=== PATIENT | female | born 1970 | race Caucasian/White ===

== ENCOUNTER 2025-06-02 05:53 | Inpatient (IN) | payer OTHER ==
[~2025-06-02] VITALS: Ht 160 cm; Wt 52.0 kg
[2025-06-02 07:09] LABS: BASOPHILS ABSOLUTE AUTO 0.03 K/mm3 (0.00-0.23); BASOPHILS PERCENT AUTO 1 % (0-2); EOSINOPHILS ABSOLUTE AUTO 0.11 K/mm3 (0.00-0.68); EOSINOPHILS PERCENT AUTO 2 % (0-6); Hematocrit 29.6 % (33.0-51.0); Hemoglobin 10.7 g/dL (11.5-16.0); IMMATURE GRAN ABSOLUTE AUTO 0.13 K/mm3 (0.00-0.10); IMMATURE GRAN PERCENT AUTO 2 % (0-1); LYMPHOCYTES ABSOLUTE AUTO 0.88 K/mm3 (0.84-5.20); LYMPHOCYTES PERCENT AUTO 13 % (21-46); MONOCYTES ABSOLUTE AUTO 0.77 K/mm3 (0.16-1.47); MONOCYTES PERCENT AUTO 12 % (4-13); Mean Corpuscular HGB Conc 36.1 g/dL (31.5-36.5); Mean Corpuscular Volume 96 fL (80-100); NEUTROPHILS ABSOLUTE AUTO 4.70 K/mm3 (1.96-9.15); NEUTROPHILS PERCENT AUTO 71 % (41-73); NRBC ABSOLUTE 0.00 K/mm3 (0.00-0.02); NRBC Auto 0.0 /100 WBC (0.0-0.2); Platelet Count 194 K/mm3 (150-400); RDW Coefficient Variation 13.0 % (11.7-14.2); RDW Standard Deviation 45.1 fL (35.1-46.3)
[2025-06-02] MEDS ORDERED: CefTRIAXone Sodium 2,000 MG in NS 100 ML IV ONE (07:25)
[2025-06-02 07:28] LABS: Alanine Aminotransfer (ALT/SGP 17.0 U/L (12-78); Albumin, Blood 2.3 g/dL (3.4-5.0); Albumin/Globulin Ratio 0.7 (0.8-1.8); Anion Gap 9.0 mmol/L (3-11); Aspartate Aminotrans (AST/SGOT 9.0 U/L (12-37); Bilirubin, Total 0.3 mg/dL (0.1-1.0); Blood Urea Nitrogen 12.0 mg/dL (8-24); CO2, Blood 25.0 mmol/L (21-32); Calcium, Blood 8.8 mg/dL (8.5-10.1); Chloride, Blood 102.0 mmol/L (98-108); Creatinine, Blood 0.61 mg/dL (0.40-1.00); Globulin, Blood 3.5 g/dL (2.2-4.0); Glucose, Blood 127.0 mg/dL (70-99); Potassium, Blood 2.7 mmol/L (3.5-5.5); Sodium, Blood 133.0 mmol/L (136-145); Total Protein, Blood 5.8 g/dL (6.4-8.2)
[2025-06-02] MEDS ORDERED: Potassium Chl 10MEQ/Water100ML 100 ML IV ONE (07:45)
[2025-06-02] MEDS ORDERED: NS 1,000 ML IV SCH ×2 (09:20→15:00)
[2025-06-02] MEDS ORDERED: Ondansetron HCl 2 MG / ML 2ML Vial IV ONE (09:20)
[2025-06-02] MEDS ORDERED: FLU VACC TS2025-26(6MOS UP)/PF 45 MCG/0.5 ML SYRINGE IM ONE (11:55)
[2025-06-02] MEDS ORDERED: Polyethylene Glycol 3350 17 gm PO ONE (15:00)
[2025-06-02] MEDS ORDERED: Polyethylene Glycol 3350 17 gm PO PRN (15:00)
[2025-06-02] MEDS ORDERED: Albuterol HFA200 ACT/6.7 GM INH INH PRN (15:00)
[2025-06-02 15:09] VITALS: BP 127/80
--- NOTE | 2025-06-02 15:21 | NUR ---
ADMISSION NOTE: PT ARRIVED TO ROOM 342 VIA W/C AT 1505. A&OX4 ON ARRIVAL. SELF TRANSFERED TO BED. IVs FLUSHED, PATENT. VSS. LYING IN BED WITH HOB SLIGHTLY ELEVATED. REPORT GIVEN TO PRIMARY RN. CALL LT WITHIN REACH. BED LOCKED AND PLACED INTO ITS LOWEST POSITION.
[2025-06-02] MEDS ORDERED: FLU VACC TS2025-26(6MOS UP)/PF 45 MCG/0.5 ML SYRINGE IM SCH (16:50)
--- NOTE | 2025-06-02 19:39 | NUR ---
SHIFT SUMMARY- PT ALERT AND ORIENTED. SHE WAS ADMITTED THROUGH THE ED FOR PNEUMONIA. ADMISSION COMPLETED. CALLED DR JOHNSON AFTER ADMIT ASSESSMENT. PT STATED SHE HAS OFF AND ON NUMBNESS IN THE TWO OUTER FINGERS OF HER RIGHT HAND; HOWEVER SHE STATES THEY HAVE BEEN NUMB FOR THE PAST WEEK OR TWO AND NOW HER HAND IS STARTING TO BURN. IS AWARE AND WILL SEE THE PT TOMORROW. BEDSIDE REPORT COMPLETED WITH NIGHT DUSTIN WATT. PT UNABLE TO PRODUCE ADEQUATE SPUTUM SAMPLE, NIGHT RN AWARE AND WILL TRY TO GET A SAMPLE. PT RESTING AT THE TIME OF REPORT. NO S&S OF DISTRESS NOTED.
[2025-06-02 19:41] VITALS: BP 145/86
[2025-06-02 22:17] VITALS: BP 131/86
--- NOTE | 2025-06-02 23:22 | NUR ---
Severe abd pain At 1999 pt c/o severe sharp abdominal pain where she could feel her pulse in her abdomen. Rechecked VS, no change. No dizzyness, nausea or clammy skin. I called the resident who came and assessed her. He ordered 500 mg Tums PRN and said to call back in 2 hours if symptoms do not improve.
[2025-06-03 04:23] VITALS: BP 123/79
[2025-06-03 05:03] LABS: BASOPHILS ABSOLUTE AUTO 0.04 K/mm3 (0.00-0.23); BASOPHILS PERCENT AUTO 1 % (0-2); EOSINOPHILS ABSOLUTE AUTO 0.12 K/mm3 (0.00-0.68); EOSINOPHILS PERCENT AUTO 2 % (0-6); Hematocrit 30.6 % (33.0-51.0); Hemoglobin 10.7 g/dL (11.5-16.0); IMMATURE GRAN ABSOLUTE AUTO 0.22 K/mm3 (0.00-0.10); IMMATURE GRAN PERCENT AUTO 5 % (0-1); LYMPHOCYTES ABSOLUTE AUTO 1.42 K/mm3 (0.84-5.20); LYMPHOCYTES PERCENT AUTO 29 % (21-46); MONOCYTES ABSOLUTE AUTO 0.72 K/mm3 (0.16-1.47); MONOCYTES PERCENT AUTO 15 % (4-13); Mean Corpuscular HGB Conc 35.0 g/dL (31.5-36.5); Mean Corpuscular Volume 95 fL (80-100); NEUTROPHILS ABSOLUTE AUTO 2.41 K/mm3 (1.96-9.15); NEUTROPHILS PERCENT AUTO 49 % (41-73); NRBC ABSOLUTE 0.00 K/mm3 (0.00-0.02); NRBC Auto 0.0 /100 WBC (0.0-0.2); Platelet Count 214 K/mm3 (150-400); RDW Coefficient Variation 13.2 % (11.7-14.2); RDW Standard Deviation 46.7 fL (35.1-46.3)
[2025-06-03 05:49] LABS: Alanine Aminotransfer (ALT/SGP 15.0 U/L (12-78); Albumin, Blood 2.1 g/dL (3.4-5.0); Albumin/Globulin Ratio 0.6 (0.8-1.8); Anion Gap 8.0 mmol/L (3-11); Aspartate Aminotrans (AST/SGOT 11.0 U/L (12-37); Bilirubin, Total 0.3 mg/dL (0.1-1.0); Blood Urea Nitrogen 6.0 mg/dL (8-24); CO2, Blood 24.0 mmol/L (21-32); Calcium, Blood 8.4 mg/dL (8.5-10.1); Chloride, Blood 107.0 mmol/L (98-108); Creatinine, Blood 0.51 mg/dL (0.40-1.00); Globulin, Blood 3.5 g/dL (2.2-4.0); Glucose, Blood 103.0 mg/dL (70-99); Potassium, Blood 2.9 mmol/L (3.5-5.5); Sodium, Blood 136.0 mmol/L (136-145); Total Protein, Blood 5.6 g/dL (6.4-8.2)
--- NOTE | 2025-06-03 06:29 | NUR ---
Shift Summary Pt had severe abd pain at one point in the night, see previous nursing note. Abd pain is now resolved, pt states she feels much better after having a BM this AM. Pt is AOx4, independent in the room. Lung sounds are a bit coarse and wheezy. SPO2>92% on RA, no difficult or labored breathing.
[2025-06-03 07:40] VITALS: BP 134/85
[2025-06-03 07:50] LABS: Acinetobacter baumannii DNA Not Detected copy/mL (NOT DETECT); Chlamydia pneumonia Not Detected (NOT DETECT); Enterobacter cloacae DNA Not Detected copy/mL (NOT DETECT); Escherichia coli DNA Not Detected copy/mL (NOT DETECT); Haemophilus influenzae DNA Not Detected copy/mL (NOT DETECT); Human Coronavirus RNA Not Detected (NOT DETECT); Human Metapneumovirus RNA Not Detected (NOT DETECT); Influenza virus A RNA Not Detected (NOT DETECT); Influenza virus B RNA Not Detected (NOT DETECT); Klebsiella aerogenes DNA Not Detected copy/mL (NOT DETECT); Klebsiella oxytoca DNA Not Detected copy/mL (NOT DETECT); Klebsiella pneumoniae DNA Not Detected copy/mL (NOT DETECT); Moraxella catarrhalis DNA Not Detected copy/mL (NOT DETECT); Proteus sp DNA Not Detected copy/mL (NOT DETECT); Pseudomonas aeruginosa DNA Not Detected copy/mL (NOT DETECT); Respiratory syncytial Vir RNA Not Detected (NOT DETECT); Rhinovirus+Enterovirus RNA Not Detected (NOT DETECT); Serratia marcescens DNA Not Detected copy/mL (NOT DETECT); Staphylococcus aureus DNA Not Detected copy/mL (NOT DETECT); Streptococcus agalactiae DNA Not Detected copy/mL (NOT DETECT); Streptococcus pneumoniae DNA Not Detected copy/mL (NOT DETECT); Streptococcus pyogenes DNA Not Detected copy/mL (NOT DETECT)
[2025-06-03] MEDS ORDERED: CefTRIAXone Sodium 1,000 MG in NS 100 ML IV SCH (08:00)
[2025-06-03] MEDS ORDERED: Enoxaparin 40 MG/0.4 ML SYR SC SCH (09:00)
--- NOTE | 2025-06-03 09:00 | NUR ---
pt laying in bed, but up ad aleyda in room frequently gate noted to be steady, a/ox4, pleasant and cooperative with care, follows commands well, denies pain except with swollow, sore throat, lungs are course, crackles in left base, with occ exp wheeze, on r/a, has a productive cough of green sputum, hrr, no edema noted, ppp+2, cap refill<3 sec, vs stable, afebrile, pivx2 to right hand and left ac, sites are clear and patent, btx4, abd flat soft nontneder, voids without diff, skin c/w/d, maew, vonnie, call light in reach.
[2025-06-03] MEDS ORDERED: CefTRIAXone Sodium 1,000 MG in NS 100 ML IV ONE (12:10)
--- NOTE | 2025-06-03 14:21 | NUR ---
PT REPORTS SHARP PAIN UNDER LEFT SHOULDERBLADE AND LOWER LEFT LUNG. PAIN DOES NOT CHANGE WITH DEEP INSPIRATION. PATIENT GIVEN FLUTTER VALVE AND INSTRUCTED ON ITS USE. AUTOMATIC MACHINES SUPERVISOR WILL OBTAIN KPAD. CONTACTED VIA PHONE DR BERRY AND MED ORDERS RECEIVED,PT GIVEN UPDATE OF PLAN FOR CARE
--- NOTE | 2025-06-03 14:35 | NUR ---
Pt complaining about bad back pain just under shoulder blade, rates 02/02, was called and recieved order for tramadol, this was given, will also set up a heating pad for her, sitting up on the side of the bed at this time, call light in reach.
[2025-06-03] MEDS ORDERED: Lactobacil 2-S.Thermo-Bifido 1 1 Cap PO SCH (14:55)
[2025-06-03 19:20] VITALS: BP 138/91
[2025-06-04 03:10] VITALS: BP 134/83
[2025-06-04 04:19] LABS: Hematocrit 30.3 % (33.0-51.0); Hemoglobin 10.7 g/dL (11.5-16.0); Mean Corpuscular HGB Conc 35.3 g/dL (31.5-36.5); Mean Corpuscular Volume 95 fL (80-100); NRBC ABSOLUTE 0.00 K/mm3 (0.00-0.02); NRBC Auto 0.0 /100 WBC (0.0-0.2); Platelet Count 201 K/mm3 (150-400); RDW Coefficient Variation 13.2 % (11.7-14.2); RDW Standard Deviation 46.7 fL (35.1-46.3)
[2025-06-04 04:49] LABS: Alanine Aminotransfer (ALT/SGP 13.0 U/L (12-78); Albumin, Blood 2.3 g/dL (3.4-5.0); Albumin/Globulin Ratio 0.7 (0.8-1.8); Anion Gap 10.0 mmol/L (3-11); Aspartate Aminotrans (AST/SGOT 7.0 U/L (12-37); Bilirubin, Total 0.4 mg/dL (0.1-1.0); Blood Urea Nitrogen 4.0 mg/dL (8-24); CO2, Blood 24.0 mmol/L (21-32); Calcium, Blood 9.2 mg/dL (8.5-10.1); Chloride, Blood 104.0 mmol/L (98-108); Creatinine, Blood 0.44 mg/dL (0.40-1.00); Globulin, Blood 3.5 g/dL (2.2-4.0); Glucose, Blood 133.0 mg/dL (70-99); Potassium, Blood 3.5 mmol/L (3.5-5.5); Sodium, Blood 134.0 mmol/L (136-145); Total Protein, Blood 5.8 g/dL (6.4-8.2)
[2025-06-04 07:28] VITALS: BP 122/82
[2025-06-04] MEDS ORDERED: CefTRIAXone Sodium 2,000 MG in NS 100 ML IV SCH (08:00)
[2025-06-04] MEDS ORDERED: NS 250 ML IV PRN (08:15)
[2025-06-04 17:41] VITALS: BP 134/80
--- NOTE | 2025-06-04 17:51 | NUR ---
NO ACUTE CHANGES, CLEARLY MAKES NEEDS KNOWN, INCREASED COUGHING AND SPUTUMN, INCREASED AGGITATION AT TIMES, REFUSED NICOTINE PATCH TODAY
[2025-06-04 19:55] VITALS: BP 119/70
[2025-06-05 00:18] VITALS: BP 130/72
[2025-06-05 04:30] VITALS: BP 121/67
[2025-06-05 07:21] LABS: Alanine Aminotransfer (ALT/SGP 12.0 U/L (12-78); Albumin, Blood 2.3 g/dL (3.4-5.0); Albumin/Globulin Ratio 0.6 (0.8-1.8); Anion Gap 10.0 mmol/L (3-11); Aspartate Aminotrans (AST/SGOT 9.0 U/L (12-37); Bilirubin, Total 0.5 mg/dL (0.1-1.0); Blood Urea Nitrogen 5.0 mg/dL (8-24); CO2, Blood 25.0 mmol/L (21-32); Calcium, Blood 8.9 mg/dL (8.5-10.1); Chloride, Blood 101.0 mmol/L (98-108); Creatinine, Blood 0.47 mg/dL (0.40-1.00); Globulin, Blood 3.9 g/dL (2.2-4.0); Glucose, Blood 104.0 mg/dL (70-99); Magnesium, Blood 1.7 mg/dL (1.6-2.4); Potassium, Blood 3.5 mmol/L (3.5-5.5); Sodium, Blood 132.0 mmol/L (136-145); Total Protein, Blood 6.2 g/dL (6.4-8.2)
[2025-06-05 07:27] VITALS: BP 125/74
[2025-06-05] MEDS ORDERED: NICO21TP TOP (12:42)
[2025-06-05] MEDS ORDERED: ALBU90OI INH (12:42)
[2025-06-05] MEDS ORDERED: VISBIOME 112.51 EACH PO (12:43)
[2025-06-05] MEDS ORDERED: AZIT250 PO (12:44)
[2025-06-05] MEDS ORDERED: CEFDINIR300 M2 PO (12:44)
--- NOTE | 2025-06-05 14:38 | NUR ---
DISCHARGE NOTE PT A&OX4. PT ADMITTED DUE TO PNEUMONIA. PT REPORTS NO CHEST PAIN, PT REPORTS OWUSU, PAIN MANAGED PER EMAR. PT REPORTS NAUSEA BUT NO VOMITTING. PT REPORTS NO SOB. VSS. IV INFILTRATED THIS AM, NURSING RN PUT IN NEW IV WITH INSTRUCTOR. WANTED PT TO GET IV ANTIBIOTIC DOSE. PT RECEIVED ANTIBIOTIC X2. PT INDEPENDENT IN ROOM. PT REPORTS MUCUS PRODUCTION. FOOD DELIVERED TO PT TO TAKE HOME. CONTENT CURATOR ARRANGED TRANSPORT. PT REPORTED "WILL LET TAXI KNOW I NEED TO DATA [facility]IGRATION [facility] MEDS AT [facility]." IV D/C. SLURRY PLANT OPERATOR COMPLETED DISCHARGE AND FAXED MEDS TO PREFERRED PHARMACY. PT TOOK ALL BELONGINGS. THIS RN WENT OVER DISCHARGE INSTRUCTIONS AND MEDS. MANUAL MACHINIST ESCORTED PT TO PT ENTERANCE.
== END 2025-06-05 14:25 | disposition home or self-care (01) | DRG 871 ==
LOC: ER 05:53 → MEDS 05:54 → ENPENDDIS 06-05 11:53 → MEDS 06-05 14:25
PROVIDERS: Emergency Medicine; Registered Nurse; ADMIT Hospitalist
DX: A41.9 Sepsis, unspecified organism (principal); J18.9 Pneumonia, unspecified organism; J44.0 Chronic obstructive pulmonary disease with (acute) lower respiratory infection; E87.1 Hypo-osmolality and hyponatremia; E87.6 Hypokalemia; F17.210 Nicotine dependence, cigarettes, uncomplicated; M54.6 Pain in thoracic spine; F10.10 Alcohol abuse, uncomplicated; B96.89 Other specified bacterial agents as the cause of diseases classified elsewhere; Z23 Encounter for immunization
CPT/HCPCS: 0528U; 36415; 71046; 71260; 80053; 83605; 83735; 83880; 84484; 85025; 85027; 85379; 87040; 87070; 87205; 93005; 93010; 94640; 94664; 94760; 96361; 96365; 96366; 96367; 96368; 96372; 96375; 96376; 99285-25; A9270; G0378; J0456; J0696; J1650; J2405; J3480; J7030; J7050; Q9967

== ENCOUNTER 2025-07-05 14:17 | Emergency (ER) | payer OTHER ==
[~2025-07-05] VITALS: Ht 160 cm; Wt 49.9 kg
[~2025-07-05 14:17] MED LIST: ALBU90OI INH; AZIT250 PO; CEFDINIR300 M2 PO; NICO21TP TOP; VISBIOME 112.51 EACH PO
[2025-07-05 16:29] LABS: BASOPHILS ABSOLUTE AUTO 0.04 K/mm3 (0.00-0.23); BASOPHILS PERCENT AUTO 1 % (0-2); EOSINOPHILS ABSOLUTE AUTO 0.34 K/mm3 (0.00-0.68); EOSINOPHILS PERCENT AUTO 5 % (0-6); Hematocrit 39.6 % (33.0-51.0); Hemoglobin 13.4 g/dL (11.5-16.0); IMMATURE GRAN ABSOLUTE AUTO 0.02 K/mm3 (0.00-0.10); IMMATURE GRAN PERCENT AUTO 0 % (0-1); LYMPHOCYTES ABSOLUTE AUTO 1.78 K/mm3 (0.84-5.20); LYMPHOCYTES PERCENT AUTO 24 % (21-46); MONOCYTES ABSOLUTE AUTO 0.52 K/mm3 (0.16-1.47); MONOCYTES PERCENT AUTO 7 % (4-13); Mean Corpuscular HGB Conc 33.8 g/dL (31.5-36.5); Mean Corpuscular Volume 99 fL (80-100); NEUTROPHILS ABSOLUTE AUTO 4.77 K/mm3 (1.96-9.15); NEUTROPHILS PERCENT AUTO 64 % (41-73); NRBC ABSOLUTE 0.00 K/mm3 (0.00-0.02); NRBC Auto 0.0 /100 WBC (0.0-0.2); Platelet Count 191 K/mm3 (150-400); RDW Coefficient Variation 13.9 % (11.7-14.2); RDW Standard Deviation 50.4 fL (35.1-46.3)
[2025-07-05 16:41] LABS: Alanine Aminotransfer (ALT/SGP 24.0 U/L (12-78); Albumin, Blood 3.5 g/dL (3.4-5.0); Albumin/Globulin Ratio 0.9 (0.8-1.8); Anion Gap 9.0 mmol/L (3-11); Aspartate Aminotrans (AST/SGOT 18.0 U/L (12-37); Bilirubin, Total 0.3 mg/dL (0.1-1.0); Blood Urea Nitrogen 5.0 mg/dL (8-24); CO2, Blood 26.0 mmol/L (21-32); Calcium, Blood 9.2 mg/dL (8.5-10.1); Chloride, Blood 105.0 mmol/L (98-108); Creatinine, Blood 0.59 mg/dL (0.40-1.00); Globulin, Blood 3.9 g/dL (2.2-4.0); Glucose, Blood 100.0 mg/dL (70-99); Potassium, Blood 3.7 mmol/L (3.5-5.5); Sodium, Blood 136.0 mmol/L (136-145); Total Protein, Blood 7.4 g/dL (6.4-8.2)
[2025-07-05] MEDS ORDERED: Trimethoprim/Sulfamethoxazole DS Tab PO ONE (17:05)
[2025-07-05] MEDS ORDERED: IBUP600 PO (17:15)
[2025-07-05] MEDS ORDERED: Bactrim Ds Tab1 EACH PO (17:15)
== END 2025-07-05 17:20 | disposition home or self-care (01) ==
LOC: ER 14:17
PROVIDERS: Emergency Medicine
DX: L73.9 Follicular disorder, unspecified (principal); J44.9 Chronic obstructive pulmonary disease, unspecified; Z88.1 Allergy status to other antibiotic agents; Z79.899 Other long term (current) drug therapy
CPT/HCPCS: 80053; 85025; 93005; 93010; 99283-25; A9270